=== PATIENT | female | born 1995 | race Two or more races ===

== ENCOUNTER 2017-05-20 01:50 | Inpatient (IN) | payer OTHER ==
[~2017-05-20] VITALS: Ht 162.6 cm; Wt 93.6 kg
[2017-05-20] MEDS ORDERED: SODIUM CHLORIDE 0.9% 1,000ML IVBOLUS ONE ×2 (03:00→04:00)
[2017-05-20] MEDS ORDERED: ALBUTEROL SULFATE 2.5 MG/3 ML NPPB ONE (03:00)
[2017-05-20 03:08] LABS: MEAN CORPUSCULAR HEMOGLOBIN 26.6 pg (27.0-34.8); MEAN CORPUSCULAR VOLUME 80.5 fL (80-100); MEAN PLATELET VOLUME 8.3 fL (7.4-10.4); PLATELET COUNT 321 x10^3/uL (130-400); RED BLOOD COUNT 3.71 x10^6/uL (3.82-5.3)
[2017-05-20 03:13] LABS: ALANINE AMINOTRANSFERASE 27 U/L (12-78); ALBUMIN 3.1 g/dL (3.4-5.0); ANION GAP 12 mmol/L (5-15); CALCIUM 7.9 mg/dL (8.5-10.1); CHLORIDE 112 mmol/L (98-107); CREATININE 3.84 mg/dL (0.55-1.02)
[2017-05-20 03:17] LABS: ALKALINE PHOSPHATASE 63 U/L (45-117); BILIRUBIN,TOTAL 0.1 mg/dL (0.2-1.0); TROPONIN I < 0.015 ng/mL (0.000-0.045)
[2017-05-20 03:27] LABS: MD YES
[2017-05-20 03:30] LABS: <PLATELET ESTIMATE> ADEQUATE; <PLT MORPHOLOGY> NORMAL PLT MORPH; <RBC MORPHOLOGY> NORMAL; EOS#(MANUAL) 2.04 x10^3/uL (0.0-0.4); EOS% (MANUAL) 15 % (1-7); LYMPHS% (MANUAL) 11 % (22-44); MONOS#(MANUAL) 0.27 x10^3/uL (0.3-2.7); MONOS% (MANUAL) 2 % (2-9); SEG#(MANUAL) 9.79 x10^3/uL (1.8-6.8); SEGS% (MANUAL) 72 % (42-75)
[2017-05-20 03:48] LABS: MICROSCOPIC AUTO
[2017-05-20 03:49] LABS: CULTURE INDICATED? NO
[2017-05-20] MEDS ORDERED: POTASSIUM CHLORIDE 20 MEQ in SODIUM CHLORIDE 0.9% 1,000 ML IV ONE (03:57)
[2017-05-20] MEDS ORDERED: ONDANSETRON 2MG/ML, 2ML IVPush PRN ×2 (04:00→05:00)
[2017-05-20] MEDS ORDERED: AZITHROMYCIN 500 MG in SODIUM CHLORIDE 0.9% 250 ML IV ONE (04:00)
[2017-05-20] MEDS ORDERED: NS + 20MEQ KCL 1,000 ML IV ONE (04:47)
[2017-05-20] MEDS ORDERED: hydrALAzine 20 MG/ML, 1ML IV PRN (05:00)
[2017-05-20] MEDS ORDERED: POTASSIUM CHLORIDE 20 MEQ TAB.ER.PRT PO ONE (05:00)
[2017-05-20] MEDS: NS + 20MEQ KCL 1,000 ML IV SCH ×3 (05:05→21:19)
[2017-05-20] MEDS ORDERED: POTASSIUM CHLORIDE 20 MEQ TAB.ER.PRT ONE (05:18)
[2017-05-20] MEDS: cloniDINE 0.3MG PATCH TD SCH ×2 (06:02→06:39)
[2017-05-20] MEDS ORDERED: hydrALAzine 20 MG/ML, 1ML ONE ×2 (06:03→11:24)
[2017-05-20] MEDS: hydrALAzine 20 MG/ML, 1ML IVPush PRN ×2 (06:07→11:27)
[2017-05-20] MEDS ORDERED: CETI10CA PO (06:22)
[2017-05-20] MEDS ORDERED: NIFE90TA9 PO (06:22)
[2017-05-20] MEDS ORDERED: CLON1PAT9 TD (06:22)
[2017-05-20] MEDS ORDERED: SODI650T PO (06:22)
[2017-05-20] MEDS ORDERED: PRED5TAB PO (06:22)
[2017-05-20] MEDS ORDERED: LOSA50TA6 PO (06:22)
[2017-05-20] MEDS ORDERED: MYCO360T PO (06:22)
[2017-05-20] MEDS ORDERED: TACR5CAP4 PO (06:22)
[2017-05-20] MEDS ORDERED: ALBU8.5H8 INH (06:22)
[2017-05-20] MEDS: ALBUTEROL SULFATE 2.5 MG/3 ML NPPB SCH ×4 (07:00→19:48)
[2017-05-20] MEDS ORDERED: ALBUTEROL SULFATE 2.5 MG/3 ML ONE (07:14)
[2017-05-20] MEDS ORDERED: LOSARTAN 50MG TABLET PO SCH (09:00)
[2017-05-20] MEDS: methylPREDNISolone SOD SUCC 40 MG/ML IV SCH ×2 (09:00→21:19)
[2017-05-20] MEDS ORDERED: HEPARIN 5,000 UNITS/ML, 1ML ONE (09:58)
[2017-05-20] MEDS ORDERED: methylPREDNISolone SOD SUCC 125 MG/2 ML ONE (09:58)
[2017-05-20] MEDS: niFEDipine ER 90 MG TAB.ER.24 PO SCH ×2 (10:06→21:19)
[2017-05-20] MEDS: SODIUM BICARBONATE 650 MG TABLET PO SCH ×2 (10:06→21:19)
[2017-05-20] MEDS: CETIRIZINE 10 MG TABLET PO SCH (10:07)
[2017-05-20] MEDS: HEPARIN 5,000 UNITS/ML, 1ML SQ SCH ×2 (10:07→21:19)
[2017-05-20 12:30] LABS: ANION GAP 10 mmol/L (5-15); CHLORIDE 119 mmol/L (98-107); CREATININE 3.54 mg/dL (0.55-1.02)
[2017-05-20 13:11] VITALS: BP 143/83
[2017-05-20] MEDS: TACROLIMUS 1 MG CAPSULE PO SCH (13:30)
[2017-05-20] MEDS: ALBUTEROL SULFATE 2.5 MG/3 ML NPPB PRN (14:07)
[2017-05-20] MEDS ORDERED: POTASSIUM CHLORIDE 20 MEQ TAB.ER.PRT PO SCH (17:00)
[2017-05-20 17:50] LABS: CREATININE,URINE RANDOM 57.5 mg/dL
[2017-05-20 18:46] VITALS: BP 151/87
[2017-05-21] MEDS: TACROLIMUS 1 MG CAPSULE PO SCH ×3 (00:49→23:56)
[2017-05-21 00:52] VITALS: BP 185/127
[2017-05-21 00:55] VITALS: BP 162/109
[2017-05-21] MEDS: NS + 20MEQ KCL 1,000 ML IV SCH (05:00)
[2017-05-21 05:42] LABS: ANION GAP 10 mmol/L (5-15); CALCIUM 8.4 mg/dL (8.5-10.1); CHLORIDE 119 mmol/L (98-107)
[2017-05-21 05:45] LABS: CREATININE 3.27 mg/dL (0.55-1.02)
[2017-05-21 07:22] VITALS: BP 161/101
[2017-05-21] MEDS ORDERED: IRON DEXTRAN IV PER PHARMACY IV PRN (08:00)
[2017-05-21] MEDS: ALBUTEROL SULFATE 2.5 MG/3 ML NPPB SCH ×4 (08:05→20:00)
[2017-05-21] MEDS ORDERED: IRON DEXTRAN COMPLEX 25 MG in SODIUM CHLORIDE 0.9% 50 ML IV ONE (08:30)
[2017-05-21] MEDS: methylPREDNISolone SOD SUCC 40 MG/ML IV SCH ×2 (08:42→21:26)
[2017-05-21] MEDS: SODIUM BICARB 8.4%,50ML SYR. 75 MEQ in SODIUM CHLORIDE 0.45% 1,000 ML IV SCH ×2 (08:42→17:22)
[2017-05-21] MEDS: CETIRIZINE 10 MG TABLET PO SCH (08:43)
[2017-05-21] MEDS: HEPARIN 5,000 UNITS/ML, 1ML SQ SCH ×2 (08:43→21:27)
[2017-05-21] MEDS: SODIUM BICARBONATE 650 MG TABLET PO SCH ×2 (08:43→21:26)
[2017-05-21] MEDS ORDERED: EPINEPHRINE 1 MG/ML, 1ML SQ ONE (10:00)
[2017-05-21] MEDS ORDERED: IRON DEXTRAN COMPLEX 1,300 MG in SODIUM CHLORIDE 0.9% 250 ML IV ONE (10:00)
[2017-05-21] MEDS: ACETAMINOPHEN 325 MG TABLET PO PRN ×2 (10:34→23:58)
[2017-05-21] MEDS: niFEDipine ER 90 MG TAB.ER.24 PO SCH ×2 (11:24→21:27)
[2017-05-21 13:37] LABS: ANION GAP 12 mmol/L (5-15); CALCIUM 8.1 mg/dL (8.5-10.1); CHLORIDE 118 mmol/L (98-107); CREATININE 3.41 mg/dL (0.55-1.02)
[2017-05-21 13:39] VITALS: BP 156/94
[2017-05-21 19:22] VITALS: BP 147/89
[2017-05-22 00:01] VITALS: BP 172/120
[2017-05-22] MEDS: hydrALAzine 20 MG/ML, 1ML IVPush PRN (00:05)
[2017-05-22] MEDS: ALBUTEROL SULFATE 2.5 MG/3 ML NPPB PRN (00:09)
[2017-05-22] MEDS: SODIUM BICARB 8.4%,50ML SYR. 75 MEQ in SODIUM CHLORIDE 0.45% 1,000 ML IV SCH ×2 (01:50→10:54)
[2017-05-22 06:40] VITALS: BP 139/85
[2017-05-22] MEDS: ALBUTEROL SULFATE 2.5 MG/3 ML NPPB SCH (07:00)
[2017-05-22 07:21] LABS: CHLORIDE 115 mmol/L (98-107)
[2017-05-22 07:22] LABS: ANION GAP 11 mmol/L (5-15); CALCIUM 7.9 mg/dL (8.5-10.1); CREATININE 3.11 mg/dL (0.55-1.02)
[2017-05-22] MEDS: ACETAMINOPHEN 325 MG TABLET PO PRN (07:59)
[2017-05-22] MEDS: niFEDipine ER 90 MG TAB.ER.24 PO SCH (07:59)
[2017-05-22] MEDS: CETIRIZINE 10 MG TABLET PO SCH (07:59)
[2017-05-22] MEDS: HEPARIN 5,000 UNITS/ML, 1ML SQ SCH (07:59)
[2017-05-22] MEDS: SODIUM BICARBONATE 650 MG TABLET PO SCH (08:00)
[2017-05-22] MEDS ORDERED: ALBUTEROL/IPRATROPIUM 2.5MG/0.5MG, 3 ML ONE (08:12)
[2017-05-22] MEDS ORDERED: TACR1CAP4 PO (11:30)
[2017-05-22] MEDS ORDERED: MYCO500T3 PO (11:30)
[2017-05-22 12:23] VITALS: BP 142/85
[2017-05-22] MEDS: TACROLIMUS 1 MG CAPSULE PO SCH (12:27)
[2017-05-22] MEDS ORDERED: SODIUM BICARBONATE 650 MG TABLET PO SCH (21:00)
== END 2017-05-22 13:25 | disposition home or self-care (01) | DRG 189 ==
LOC: ED 03:28 → EDIP 04:21 → 4EST 13:06 → DCLOUNGE 05-22 13:25
PROVIDERS: ADMIT Hospitalist; ATTEND Hospitalist
DX: J96.00 Acute respiratory failure, unspecified whether with hypoxia or hypercapnia (principal); N17.9 Acute kidney failure, unspecified; E87.2 Acidosis; J45.41 Moderate persistent asthma with (acute) exacerbation; E87.5 Hyperkalemia; R65.10 Systemic inflammatory response syndrome (SIRS) of non-infectious origin without acute organ dysfunction; Z94.0 Kidney transplant status; I12.9 Hypertensive chronic kidney disease with stage 1 through stage 4 chronic kidney disease, or unspecified chronic kidney disease; E87.6 Hypokalemia; E66.9 Obesity, unspecified; D72.829 Elevated white blood cell count, unspecified; D63.1 Anemia in chronic kidney disease; N18.9 Chronic kidney disease, unspecified; Z68.35 Body mass index [BMI] 35.0-35.9, adult
CPT/HCPCS: 36415; 71045; 76776; 80048; 80053; 80197; 81001; 82570; 82728; 83540; 83550; 83605; 83735; 84100; 84145; 84300; 84484; 85025; 87040; 93005; 94640; 96360; 96361; J0456; J1644; J1750; J3480; J7507; J7518; J7613; J0360; J2920; J7030; J7050; J7517